=== PATIENT | female | born 1930 | race Caucasian/White ===

== ENCOUNTER 2017-02-17 10:01 | Emergency (ER) | payer MEDICARE, OTHER ==
[2017-02-17] MEDS ORDERED: ONDANSETRON 4 MG/2ML 2 ML VIAL ONE (11:25)
[2017-02-17 13:52] LABS: HEMOGLOBIN 13.7 gm/l (12.0-16.0)
[2017-02-17 13:53] LABS: HEMATOCRIT 42.1 % (37.0-47.0); MEAN CELL VOLUME 92.5 fl (81.0-99.0); MEAN CORPUSCULAR HEMOGLOBIN 30.1 pg (27.0-31.0); MEAN CORPUSCULAR HGB CONC 32.5 g/dl (33.0-37.0); RED CELL DISTRIBUTION WIDTH 13.2 % (11.5-14.5)
[2017-02-17 13:54] LABS: BASO % 0.3 % (0.2-1.0); EOS % 1.6 % (0.9-2.9); IMM NEUT% 0.3 % (0-1); LYMPH % 33.8 % (15-45); MEAN PLATELET VOLUME 10.4 fl (7.4-10.4); MONO % 8.9 % (4-12); NEUT % 55.1 % (43-75); PLATELET COUNT 159 K/mm3 (130-400)
[2017-02-17 13:55] LABS: EOS # 0.1 (0.0-0.5); MONO # 0.8 (0.0-0.8)
[2017-02-17 13:57] LABS: ALB/GLOB RATIO 1.6 (>1.0); ALBUMIN 4.1 gm/dL (3.5-5.7); CALCIUM 9.3 mg/dL (8.6-10.3)
[2017-02-17 14:00] LABS: INR 1.04; PARTIAL THROMBOPLASTIN TIME 31.1 SECONDS (24.5-33.0); PROTHROMBIN TIME 10.9 SECONDS (9.3-11.4)
[2017-02-17 14:01] LABS: CKMB ISOENZYME 1.3 ng/ml (0.6-6.3); TROPONIN I < 0.05 ng/ml (0.0-0.06)
[2017-02-17 14:15] LABS: PH,URINE 6.5 (5.0-8.0); SPECIFIC GRAVITY 1.005 (1.001-1.030); URINE BILIRUBIN NEGATIVE (NEGATIVE); URINE BLOOD NEGATIVE (NEGATIVE); URINE GLUCOSE (UA) NEGATIVE (NEGATIVE); URINE LEUKOCYTE ESTERASE NEGATIVE (NEGATIVE); URINE NITRITE NEGATIVE (NEGATIVE); URINE PROTEIN NEGATIVE (NEGATIVE); URINE UROBILINOGEN NORMAL (0-1 mg/dl)
[2017-02-17 14:16] LABS: URINE APPEARANCE CLEAR; URINE COLOR YELLOW
--- NOTE | 2017-02-17 22:02 | RAD ---
02/17/2017 1:49 PM CHEST - 2 VIEWS History: Chest pain Comparison: CT chest 02/23/2016 Findings: Two views of the chest are obtained. The lungs again demonstrate calcified pulmonary nodule within the right midlung. Other areas of nodularity are not well visualized, as seen on prior CT. The cardiomediastinal silhouette is unremarkable.. The osseous structures are intact.. 2-lead left-sided pacemaker with leads terminating in expected regions of the right atrium and ventricle. IMPRESSION: No acute intrathoracic process. Stable findings as above.
== END 2017-02-17 15:07 | disposition home or self-care (01) ==
LOC: ED 10:01
DX: R07.89 Other chest pain (principal); I11.0 Hypertensive heart disease with heart failure; I50.9 Heart failure, unspecified; I48.91 Unspecified atrial fibrillation; Z79.02 Long term (current) use of antithrombotics/antiplatelets
CPT/HCPCS: 83880; 85025; 82550; 82553; 80053; 85730; 85610; 81003; 84484 ×2; 71020; 99284 ×2; 96374; 93005; J2405